=== PATIENT | female | born 1970 | race Caucasian/White ===

== ENCOUNTER 2018-01-20 07:16 | Observation (INO) | payer OTHER ==
[~2018-01-20] VITALS: Ht 162.6 cm; Wt 77.6 kg
--- NOTE | 2018-01-20 08:28 | Diagnostic Imaging Report ---
Exam: Head CT without contrast History: Seizure Comparison studies: None Technique: Axial images were obtained from the skull base to the vertex. Coronal and sagittal images reconstructed from the axial data. Intravenous contrast: None Findings: Scalp: No abnormalities. Bones: No fractures, blastic or lytic lesions. Brain sulci: Appropriate for age. Ventricles: Normal in size and configuration. No hydrocephalus. Extra-axial spaces: No masses, no fluid collection. Parenchyma: No abnormal densities. No masses, acute hemorrhage, acute or chronic vascular insults. Sellar/suprasellar region: No abnormalities. Craniocervical junction: Patent foramen magnum. No Chiari one malformation. IMPRESSION: No acute intracranial abnormalities. Signed by: Dr. Amor De La Torre M.D. on 01/20/2018 8:25 AM
[2018-01-20 10:00] LABS: BASOPHILS # (AUTO) 0.1 (0.0-0.1); BASOPHILS % 0.7 % (0.0-1.0); EOSINOPHILS # (AUTO) 0.2 (0.0-0.4); EOSINOPHILS % 2.6 % (0.0-6.0); HEMATOCRIT 38.4 % (34.2-44.1); HEMOGLOBIN 11.7 g/dL (12.0-16.0); LYMPHOCYTES # (AUTO) 1.1 (1.0-3.2); LYMPHOCYTES % 15.7 % (18.0-39.1); MEAN CORPUSCULAR HEMOGLOBIN 22.4 pg (28-32); MEAN CORPUSCULAR HGB CONC 30.5 g/dL (31-35); MEAN CORPUSCULAR VOLUME 73.6 fL (81-99); MONOCYTES # (AUTO) 0.4 (0.2-0.8); MONOCYTES % 5.6 % (4.4-11.3); NEUTROPHILS # (AUTO) 5.2 (2.1-6.9); NEUTROPHILS % 75.1 % (38.7-80.0); PLATELET COUNT 286 x10e3/uL (140-360); RED BLOOD COUNT 5.22 x10e6/uL (3.6-5.1); RED CELL DISTRIBUTION WIDTH 16.6 % (11.7-14.4)
[2018-01-20 10:05] LABS: AMPHETAMINES SCREEN,URINE NEGATIVE (NEGATIVE); BENZODIAZEPINES SCREEN,URINE NEGATIVE (NEGATIVE); PHENCYCLIDINE SCREEN,URINE NEGATIVE (NEGATIVE)
[2018-01-20 10:16] LABS: ALANINE AMINOTRANSFERASE 20 IU/L (0-55); ALBUMIN/GLOBULIN RATIO 0.9 (0.8-2.0); ALKALINE PHOSPHATASE 44 IU/L (40-150); ANION GAP 11.2 mmol/L (8-16); BLOOD UREA NITROGEN 12 mg/dL (7-26); BUN/CREATININE RATIO 14 (6-25); CARBON DIOXIDE 26 mmol/L (22-29); CHLORIDE 102 mmol/L (98-107); CREATININE, SERUM 0.84 mg/dL (0.57-1.11); EST GLOMERULAR FILTRATION RATE > 60 ML/MIN (60-); GLUCOSE 101 mg/dL (74-118); POTASSIUM 4.2 mmol/L (3.5-5.1); SODIUM 135 mmol/L (136-145)
[2018-01-20] MEDS: MORPHINE SULFATE 2 MG/ML SYR IV PRN (12:30)
[2018-01-20] MEDS: ONDANSETRON HCL INJ 2 MG/ML VIAL IV PRN (12:30)
[2018-01-20] MEDS: SODIUM CHLORIDE FLUSH 10 ML SYR INJ PRN (12:30)
--- OUTSIDE RECORDS SUMMARY | 2018-01-20 14:40 | XMS REPORT ---
Author Author [facility] Address Unknown Phone Unavailable Care Team Providers Care Quality Review Trainer Name Role Phone ANGELA HEMPHILL Unavailable Unavailable Problems This patient has no known problems. Allergies, Adverse Reactions, Alerts This patient has no known allergies or adverse reactions. Medications This patient has no known medications. Results Test Description Test Time Test Comments Text Results Atomic Results Result Comments CT BRAIN WO [place] [address] Patient Name: ROSITA JAVIER MR #: [id number] : 1970 Age/Sex: 47/F Req # : [id number] Adm Physician: Ordered by: ANGELA HEMPHILL MD Report #: [id number] Location: ER Room/Bed: Procedure: [id number] CT/CT BRAIN WO Exam Date: 01/20/18 Exam Time: 0754 REPORT STATUS: Signed Exam: Head CT without contrast History: Seizure Comparison studies: None Technique: Axial images were obtained from the skull base to the vertex. Coronal and sagittal images reconstructed from the axial data. Intravenous contrast: None Findings: Scalp: No abnormalities. Bones: No fractures, blastic or lytic lesions. Brain sulci: Appropriate for age. Ventricles: Normal in size and configuration. No hydrocephalus. Extra-axial spaces: No masses, no fluid collection. Parenchyma: No abnormal densities. No masses, acute hemorrhage, acute or chronic vascular insults. Sellar/suprasellar region: No abnormalities. Craniocervical junction: Patent foramen magnum. No Chiari one malformation. IMPRESSION: No acute intracranial abnormalities. Signed by: Dr. Darinel De La Torre M.D. on 01/20/2018 8:25 AM Dictated By: DARINEL DE LA TORRE MD 4 Transcribed By: TIM on 01/20/18824 COPY TO: ANGELA HEMPHILL MD
[2018-01-20 15:24] VITALS: BP 140/76
[2018-01-20 16:36] VITALS: BP 140/76
--- NOTE | 2018-01-20 17:45 | History and Physical ---
HISTORY OF PRESENT ILLNESS: A 47-year-old female with no past medical history except from marijuana use. Patient came with a syncopal episode and some seizures according to her . This is the 2nd time it happened. REVIEW OF SYSTEMS: CARDIOVASCULAR: No chest pain or palpitation. RESPIRATORY: No shortness of breath, no cough. GASTROINTESTINAL: No nausea, no vomiting, no diarrhea. GENITOURINARY: No frequency, no dysuria. ALLERGIES: SHE IS ALLERGIC TO PROMETHAZINE. SOCIAL HISTORY: She does not smoke, she does not drink, but she uses marijuana. PAST MEDICAL HISTORY: Negative except for 1 other episode of seizures before. PHYSICAL EXAMINATION: VITAL SIGNS: The blood pressure is 140/76, temperature 97.9, heart rate 54 per minute, respiratory rate is 19 per minute, oxygen pressure 100%. LAB: On the BMP: Sodium 135, potassium 4.2, chloride 102, CO2 26, BUN 12, creatinine 0.84. Glucose 101. On the CBC: White blood count 6.93 with hemoglobin 11.7, hematocrit 38.4, platelet count 286,000. AST 18, ALT 20, total bilirubin 0.8, alkaline phosphatase 44. FINAL IMPRESSION: 1. Syncopal episode. 2. Seizure disorder. 3. Marijuana use. PLAN OF TREATMENT: We are going to consult Dr. Hilda Hart, neurologist. We are going to continue her on the telemetry unit. The CT of the head came back negative. We are awaiting an MRI report. We are going to use Ativan 2 mg IV every 4 hours as needed for seizures. Job#: [id number] EV
--- NOTE | 2018-01-20 17:59 | Diagnostic Imaging Report ---
EXAMINATION: MRI of the brain without contrast. HISTORY: Passed out, vertigo, possible seizure COMPARISON: Head CT on 01/20/2018 TECHNIQUE: Pre-contrast: Sagittal T1; axial T1-IR, MPGR, DWI, FLAIR. Thin section coronals of the temporal lobes: FLAIR, T2. IMAGE QUALITY: Adequate. FINDINGS: Mass: None. Encephalomalacia: No areas. Ischemic changes: None. Calcification/iron: No abnormal deposits. Hippocampi: No atrophy or gliosis. Normal fornices. Vascular: No obvious vascular malformation. Normal flow voids in major arteries and veins. Rubalcava matter: No cortical migration anomalies. White matter: Nonspecific bilateral subinsular white matter T2/FLAIR hyperintensity and a few scattered (2) FLAIR hyperintense foci, these are nonspecific and may be migraine related or early minimal chronic microvascular ischemic changes. Otherwise there are no areas of abnormal signal intensity in the brain parenchyma. Other: Brain volume: Normal for age. Ventricles: No hydrocephalus or displacement. Foramen Magnum: Unremarkable. Sella: Unremarkable. Skull: No focal lesions. Sinuses/mastoids: No significant inflammatory disease. IMPRESSION: Minimal nonspecific white matter hyperintensities as detailed above, otherwise no intracranial abnormalities, particularly no mass, mesial temporal sclerosis or migrational abnormalities. No acute infarcts. Signed by: Dr. Nanci Gonzalez M.D. on 01/20/2018 5:55 PM
--- NOTE | 2018-01-20 19:49 | Consultation ---
DATE OF CONSULTATION: January 20, 2018 NEUROLOGY CONSULTATION HISTORY OF PRESENT ILLNESS: Ms. Leyva is a 47-year-old, xyefh-lqli-czcetxdg woman without significant past medical history who presented to the emergency center at [facility] on January 20, 2018, after experiencing a single generalized seizure. At approximately 1:30 on the morning of admission, the patient awoke from sleep to use the bathroom. While in the bathroom, seated on the toilet, the patient became dizzy, which she further describes as lightheadedness. As she stood to pull up her pajama bottoms, the patient lost consciousness and fell to the ground. Ms. Leyva was subsequently found by her . According to her , the patient was shaking in both arms and both legs. She was biting the tip of her tongue. There was no bladder or bowel incontinence. The shaking of the arms and legs lasted approximately 2 to 3 minutes. Afterwards, the patient was tired and confused. During this event, the patient's woke their teenage son and had him call . After the shaking of the arms and legs concluded, the patient's and her son helped her to her feet and escorted her into the living room to sit down. As she was walking to the living room, the patient became dizzy and ran into a wall. Her teenage son then took her by the shoulders and led her to the couch without further mishap. Paramedics arrived at the patient's home 10 to 15 minutes after a call to was placed. At the time of their examination, the patient remained postictal. Her reports the postictal state lasted for approximately 20 to 30 minutes. Paramedics advised the patient be taken to a local hospital for evaluation, but the patient refused. Several hours later, the patient proceeded to the emergency center at [facility] for further evaluation and treatment. She was admitted to the hospital for further diagnostic studies. While in the emergency center, a urine drug screen returned positive for cannabis. Ms. Leyva does report daily marijuana use for the past 5 years to treat symptoms of menopause. The patient reports eating a marijuana cookie, which she bakes herself, daily. She will occasionally smoke a joint on the weekends. Ms. Leyva reports obtaining her marijuana from a reliable source. She and her wash the marijuana prior to use. Both say there is "absolutely no chance" the marijuana is tainted with some other substance. The patient reports experiencing a similar event 1 year ago. Three to 4 months prior to that, the patient experienced another similar event. None of these events were preceded by sleep deprivation, sudden cessation of heavy alcohol use or illness. Ms. Leyva reports experiencing an abnormal sensation which she further describes as a strobe effect approximately 2 minutes prior to the onset of shaking of the arms and legs. There is no known family history of epilepsy. The patient does not report prior significant head trauma or central nervous system infection. REVIEW OF SYSTEMS: Hot flashes, joint pain, confusion, seizures. Otherwise a 12-point review of systems is negative. PAST MEDICAL HISTORY: Early menopause. H. pylori infection treated with antibiotics over the summer of 2016. PAST SURGICAL HISTORY: The patient had her stomach stapled approximately 20 years ago. She has undergone 2 sections as well as a tubal ligation. PAST HOSPITALIZATIONS: For surgeries and procedures as listed above. FAMILY HISTORY: The patient's paternal and maternal grandparents are . Her paternal grandfather had coronary artery disease. Her paternal grandmother is from colon cancer. Her maternal grandmother had breast cancer. The patient's father is alive and has coronary artery disease. The patient's mother is alive. The patient has 3 brothers, 2 of whom have hypertension. The patient has 2 sons, both of whom are healthy. There is a strong family history of diabetes on both sides of the patient's family. SOCIAL HISTORY: The patient is . 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 She attended 1 year of college. The patient does not report current or prior tobacco use. She drinks an alcoholic beverage 2 to 3 times per year. As noted in the history of present illness, the patient consumes marijuana daily and has done so for the past 5 years. HOME MEDICATIONS: Aleve by mouth as needed for joint pain. ALLERGIES: PHENERGAN CAUSES SEVERE NAUSEA. NO KNOWN FOOD ALLERGIES. NO KNOWN ALLERGY TO LATEX. NO KNOWN ALLERGIES TO CONTRAST MATERIALS. PHYSICAL EXAMINATION VITAL SIGNS: Height 64 inches, weight 172 pounds, BMI 29.5 kg per meter squared, blood pressure 140/76 mmHg, pulse 61 beats per minute, respiratory rate 19 breaths per minute, oxygen saturation 100% on room air. GENERAL: The patient is awake and alert. Does not appear distressed. Overweight. HEENT: Normocephalic and atraumatic. Pupils are equal, round and reactive to light. Moist mucous membranes. NECK: Supple. No appreciable thyromegaly. No appreciable carotid bruits. CARDIOVASCULAR: S1 and S2. Regular rate and rhythm. No murmurs, rubs or gallops. RESPIRATORY: Clear to auscultation bilaterally. No wheezes, rhonchi or rales. EXTREMITIES: The skin is warm and dry. No clubbing, cyanosis or edema. The posterior tibial and dorsalis pedis pulses are 2+ and symmetric. SKIN: No rashes or lesions. NEUROLOGIC: Memory/attention: The patient is awake and alert. Oriented to person, place, time, and situation. CRANIAL NERVES: Cranial nerve I: Not tested. Cranial nerves II, III, IV, : Pupils are equal and round, react briskly to light (4 mm to 2 mm). Extraocular movements intact. No nystagmus. Cranial nerve V: Sensation to light touch and pinprick is intact in the bilateral V1 through V3 distributions. Strength of the temporalis and masseter muscles is within normal limits. Cranial nerve VII: The face is symmetric, as are all facial movements. Strength is within normal limits. Cranial nerve VIII: Hearing is intact to finger rub bilaterally. Cranial nerve IX and X: The soft palate elevates equally and symmetrically. Cranial nerve XI: Normal strength of the bilateral sternocleidomastoid and trapezius muscles. Cranial nerve XII: The tongue protrudes midline and moves symmetrically from side to side. STRENGTH: Bulk is normal, and strength is 5/5 in the bilateral deltoids, biceps, triceps, wrist flexors and extensors, finger flexors and extensors, intrinsic hand muscles, hip flexors, knee flexors and extensors, ankle dorsiflexion and plantar flexion, and intrinsic foot muscles. Tone is normal. DTRs: Deep tendon reflexes are 2+ and symmetric at the triceps, biceps, brachioradialis, patellas, and Achilles. Plantar responses are flexor bilaterally. Absent clonus. SENSATION: Intact to light touch and pinprick in both arms and both legs. CEREBELLAR: Kbckkv-aqgu-afvgik and heel-rutherford movements are intact without dysmetria or other impairment. Rapid alternating movements are intact. GAIT: Deferred. SPEECH: Spontaneous speech is normal without appreciable dysarthria or aphasia. Repetition is intact. INVOLUNTARY MOVEMENTS: None. PRONATOR DRIFT: None. LABORATORY DATA: Sodium 135, potassium 4.2, chloride 102, carbon dioxide 26, anion gap 11.2, BUN 12, creatinine 0.84. Estimated GFR greater than 60. KLM-zd-cocbamamml ratio 14. Glucose 101, calcium 10, total bilirubin 0.8, AST 18, ALT 20, alkaline phosphatase 44, total protein 8.4, albumin 4.0, globulin 4.4, dewmbrc-cw-jvihvqhu ratio 0.9. TSH 0.716. CBC with differential and platelets revealed white blood cell count of 6.93 with 75.1% neutrophils, 15.7% lymphocytes, 5.6% monocytes, 2.6% eosinophils and 0.7% basophils. The hemoglobin and hematocrit are 11.7 and 38.4 respectively. Platelet count is 286. Urine drug screen was positive for cannabis. DIAGNOSTIC STUDIES: CT of the brain without contrast on 01/20/2018: On my review, there is no evidence of large territorial ischemia, hemorrhage, mass, or mass effect. ASSESSMENT AND PLAN: Ms. Leyva is a 47-year-old, jvuej-sqwg-kvhgaccc woman without significant past medical history, who presents to [facility] following an event concerning for a generalized tonic-clonic seizure. Within the past 15 to 16 months, the patient has experienced 3 such events. Ms. Leyva's neurological examination is nonfocal. Her laboratory data and diagnostic studies have been reviewed and are documented above. As stated above, the description of the patient's events as provided by Ms. Leyva and her are concerning for a generalized seizure disorder. Other diagnoses under consideration include neurocardiogenic syncope with convulsive syncope. Recommendations are as follows: 1. MRI of the brain without contrast to evaluate for structural abnormalities which may predispose the patient towards seizures. 2. Routine EEG to evaluate for abnormal electrical activity which may predispose the patient towards seizures. 3. Defer treatment of other medical comorbidities to the primary and other services following the patient. Thank you for this consultation. I will continue to follow this patient while she remains in the hospital. TIME SPENT: 70 minutes. Job#: [id number] JAKI DELEON
[2018-01-20 20:00] VITALS: BP_SYST 118; BP_SYST 140; BP_DIAS 65; BP_DIAS 76
[2018-01-21] VITALS: BP 126/69
[2018-01-21] MEDS: MORPHINE SULFATE 2 MG/ML SYR IV PRN (00:26)
[2018-01-21] MEDS: SODIUM CHLORIDE FLUSH 10 ML SYR INJ PRN (00:26)
[2018-01-21 06:10] LABS: BASOPHILS % 0.3 % (0.0-1.0); EOSINOPHILS # (AUTO) 0.3 (0.0-0.4); EOSINOPHILS % 5.1 % (0.0-6.0); HEMOGLOBIN 10.8 g/dL (12.0-16.0); LYMPHOCYTES # (AUTO) 1.3 (1.0-3.2); LYMPHOCYTES % 19.7 % (18.0-39.1); MEAN CORPUSCULAR HEMOGLOBIN 22.2 pg (28-32); MEAN CORPUSCULAR VOLUME 74.1 fL (81-99); MONOCYTES # (AUTO) 0.5 (0.2-0.8); MONOCYTES % 7.1 % (4.4-11.3); NEUTROPHILS # (AUTO) 4.3 (2.1-6.9); NEUTROPHILS % 67.5 % (38.7-80.0); PLATELET COUNT 250 x10e3/uL (140-360); RED BLOOD COUNT 4.86 x10e6/uL (3.6-5.1); RED CELL DISTRIBUTION WIDTH 16.5 % (11.7-14.4)
[2018-01-21 06:38] LABS: ANION GAP 10.4 mmol/L (8-16); BLOOD UREA NITROGEN 16 mg/dL (7-26); BUN/CREATININE RATIO 18 (6-25); CARBON DIOXIDE 27 mmol/L (22-29); CHLORIDE 105 mmol/L (98-107); CREATININE, SERUM 0.87 mg/dL (0.57-1.11); EST GLOMERULAR FILTRATION RATE > 60 ML/MIN (60-); GLUCOSE 100 mg/dL (74-118); POTASSIUM 4.4 mmol/L (3.5-5.1); SODIUM 138 mmol/L (136-145)
[2018-01-21 08:32] VITALS: BP 123/76
[2018-01-21] MEDS ORDERED: TRAMADOL HCL 50 MG TAB PO PRN (10:00)
[2018-01-21 10:27] VITALS: BP 123/76
[2018-01-21 12:11] VITALS: BP 125/78
[2018-01-21] MEDS: ONDANSETRON HCL INJ 2 MG/ML VIAL IV PRN (12:16)
[2018-01-21 16:56] VITALS: BP 139/71
[2018-01-21] MEDS ORDERED: LEVETIRACETAM 500 MG TAB PO SCH (17:00)
[2018-01-21 20:00] VITALS: BP 124/60
--- NOTE | 2018-01-21 20:16 | Diagnostic Imaging Report ---
Radiographs of the hips and pelvis - 5 views HISTORY: Pain COMPARISON: None available. FINDINGS: Bones: No acute displaced fracture. Osseous alignment is within normal limits. Joints: Scattered degenerative changes are seen. No osseous erosion. Soft tissues: The soft tissues appear unremarkable. IMPRESSION: Scattered degenerative changes are seen. No osseous erosion Signed by: Dr. Jean Carlos Mathew M.D. on 01/21/2018 8:13 PM
[2018-01-21] MEDS ORDERED: KEPPRA500 MG/5 M (21:32)
[2018-01-21] MEDS ORDERED: KEPPRA500 MG/5 M PO (21:32)
[2018-01-21] MEDS ORDERED: NAPROXEN SODIU550 MG (21:33)
[2018-01-21] MEDS ORDERED: KEPPRA500 MG PO ×2 (21:34→21:45)
[2018-01-21] MEDS ORDERED: NAPROSYN500 MG PO (21:49)
--- NOTE | 2018-01-22 13:41 | Discharge Summary ---
HISTORY OF PRESENT ILLNESS: G[age]-old female with no past medical history except for marijuana use, came here because of the syncopal episodes and seizures. According to , this is the second time it happened. She had an MRI of the head, which showed some microvascular ischemic changes, nothing significant, and the EEG showed some epileptic activity. Dr. Hilda Hart, neurology was consulted on the case. She recommended to the patient to be started on Keppra 1000 mg twice a day due to the seizure activities. PHYSICAL EXAMINATION: Vital Signs: Blood pressure 139/71, temperature 98.6, heart rate 69 per minute, respiratory rate is 18 per minute, oxygen saturation 99%. LABORATORY DATA: On the BMP, sodium 138, potassium 4.4, chloride 105, CO2 27, BUN 16, creatinine 0.87, glucose 100. On the CBC, white blood count 6.44, hemoglobin 10.8, hematocrit 36.0, platelet count 250,000. AST 18, ALT 20, total bilirubin 0.8, alkaline phosphatase 44. FINAL IMPRESSION: Syncope secondary to seizure activity. PLAN OF TREATMENT: Continue Keppra 1000 mg twice a day. Patient is told not to drive a car at least for 3 months, not to climb, not to get involved in any dangerous activities. All the recommendations have been given also by Dr. Hart, neurologist. 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 All the questions have been answered. The is in the room, and she got opportunity to ask for any questions, which I answered already. Follow up with me and Dr. Hart in 2 weeks. MIGEL UNDERWOOD MD Job#: [id number]
== END 2018-01-21 22:12 | disposition home or self-care (01) ==
LOC: ER 07:16 → IMCU 14:38
PROVIDERS: ADMIT Internal Medicine; ATTEND Internal Medicine
DX: G40.909 Epilepsy, unspecified, not intractable, without status epilepticus (principal); R55 Syncope and collapse; F12.10 Cannabis abuse, uncomplicated
CPT/HCPCS: 36415 ×2; 70450; 70551; 73522; 80048; 80053; 80307; 84443; 85025 ×2; 93005; 95819; 99284; G0378 ×2; J2270 ×2; J2405 ×2